=== PATIENT | male | born 1995 | race Caucasian/White ===

== ENCOUNTER 2016-12-30 13:19 | Emergency (ER) | payer MEDICAID ==
[~2016-12-30] VITALS: Ht 182.9 cm; Wt 68.0 kg
[2016-12-30 13:19] VITALS: BP_SYST 126
[2016-12-30] MEDS ORDERED: LORazepam 1 MG TABLET PO ONE (13:45)
[2016-12-30] MEDS ORDERED: IBUPROFEN 800 MG TABLET PO ONE (14:45)
[2016-12-30 15:04] VITALS: BP_SYST 122
== END 2016-12-30 15:04 ==
LOC: SED 13:19
DX: F41.9 Anxiety disorder, unspecified (principal); R10.13 Epigastric pain
CPT/HCPCS: 99283